=== PATIENT | female | born 1995 | race Caucasian/White ===

== ENCOUNTER 2017-08-03 09:05 | Emergency (ER) | payer SELFPAY ==
[~2017-08-03] VITALS: Ht 167.6 cm; Wt 50.0 kg
[~2017-08-03 09:05] MED LIST: DICL50TA3 PO
[2017-08-03 09:08] VITALS: BP 116/57; PULSE 91; RESP 18; TEMP 98.5; O2SAT 100
--- NOTE | 2017-08-03 09:33 | PD ---
HPI Chief Complaint: Abdominal Pain Time Seen by Provider: 09:21 Travel History International Travel<30 days: No Contact w/Intl Traveler<30days: No Traveled to known affect area: No History of Present Illness HPI 21-year-old female came to the emergency room with history of pelvic pain and cramps since this morning. Patient says her period started this morning. However this is the first time she has ever started having pain with her period. She seemed uncomfortable. Her mother brought her in. Vital signs otherwise stable. Patient is just crying and not getting any meaningful history. Vital signs otherwise stable. [facility] Past Medical History Narrative Medical List of her past medical, surgical, social and family history is reviewed from the nursing note. ?: Not LMP: CURRENT Social History Alcohol Use: No Tobacco Use: No Allergies-Medications (Allergen,Severity, Reaction): Coded Allergies: No Known Allergies (Unverified , 07/26/17) Comments No known drug allergies. Reported Meds & Prescriptions Reported Meds & Active Scripts Active Ibuprofen 400 Mg Tab 400 Mg PO Q8H PRN Narrative Medication List of her home medications reviewed from the nursing note. Review of Systems Except as stated in HPI: all other systems reviewed are Neg Genitourinary: Positive: Pelvic Pain, Dysmenorrhea Physical Exam Narrative GENERAL: Awake, alert, anxious, crying SKIN: Focused skin assessment warm/dry. HEAD: Atraumatic. Normocephalic. EYES: Pupils equal and round. No scleral icterus. No injection or drainage. ENT: No nasal bleeding or discharge. Mucous membranes pink and moist. NECK: Trachea midline. No JVD. CARDIOVASCULAR: Regular rate and rhythm. No murmur appreciated. RESPIRATORY: No accessory muscle use. Clear to auscultation. Breath sounds equal bilaterally. GASTROINTESTINAL: Abdomen soft, non-tender, nondistended. Hepatic and splenic margins not palpable. MUSCULOSKELETAL: No obvious deformities. No clubbing. No cyanosis. No edema. NEUROLOGICAL: Awake and alert. No obvious cranial nerve deficits. Motor grossly within normal limits. Normal speech. PSYCHIATRIC: Appropriate mood and affect; insight and judgment normal. Data Data Last Documented VS Vital Signs Date Time Temp Pulse Resp B/P (MAP) Pulse Ox O2 Delivery O2 Flow Rate FiO2 08/03/17 09:08 98.5 91 18 116/57 (76) 100 Orders Orders Ibuprofen (Motrin) (08/03/17 09:45) Alprazolam (Xanax) (08/03/17 09:45) Ed Urine Pregnancytest Poc (08/03/17 09:35) Ed Discharge Order (08/03/17 10:21) [facility] [place] Medical Decision Making Medical Screen Exam Complete: Yes Emergency Medical Condition: Yes Medical Record Reviewed: Yes Differential Diagnosis Dysmenorrhea, ovulatory cycle, anxiety Narrative Course 10:19 AM patient had her menarche at age 15. However this the first time she started having significant pain. In my opinion patient probably has started now having ovulatory cycles. Patient was given Motrin for pain and Xanax for anxiety. I'll reassess her in a bit. test is negative. 11:20 AM UA is negative. Upon reassessment patient states she is feeling much better. She will be discharged home with prescriptions. Procedures EKG Prior to Arrival: No Diagnosis Primary Impression: Dysmenorrhea Referrals: Primary Care Physician Additional Instructions: Take the medication as per the prescription direction. Return to the ER if condition worsens or any other new concerns. Otherwise follow-up with her primary care. Med/Other Pt SpecificInfo: Prescription(s) given Scripts Ibuprofen (Ibuprofen) 400 Mg Tab 400 MG PO Q8H Y for PAIN SCALE 1 TO 4, #20 TAB 0 Refills Prov: Piotr Rivera MD 08/03/17 Disposition: 01 DISCHARGE HOME Condition: Stable Piotr Rivera MD Aug 03, 2017 09:33
[2017-08-03] MEDS ORDERED: ALPRAZolam 0.25 MG TAB PO ONE (09:45)
[2017-08-03] MEDS ORDERED: IBUPROFEN 800 MG TAB PO ONE (09:45)
[2017-08-03] MEDS ORDERED: IBUP1TAB5 PO (10:21)
== END 2017-08-03 10:40 | disposition home or self-care (01) ==
LOC: NEPD 09:05
DX: N94.6 Dysmenorrhea, unspecified (principal)
CPT/HCPCS: 84703; 99283